=== PATIENT | female | born 1950 | race Two or more races ===

== ENCOUNTER 2019-03-24 15:04 | Emergency (ER) | payer MEDICAID, OTHER, SELFPAY ==
[~2019-03-24] VITALS: Ht 144.8 cm; Wt 78.0 kg
[~2019-03-24 15:04] MED LIST: ACET325T9 PO; DOCU-109 PO; ERTA1VIA IJ; FENO200C PO; Hydrocodone/Acetaminophen PO; INSU100I17 SQ; INSU100I18 SQ; LOSA-73 PO; LOSA25TA54 PO; METF850T8 PO
[2019-03-24 15:26] VITALS: BP 227/87
--- NOTE | 2019-03-24 16:03 | PHYS DOC ---
"Past Medical History Past Medical History: Diabetes-Type II, High Cholesterol, Hypertension Past Surgical History: Cholecystectomy, Tubal ligation, Other Additional Past Surgical Histo: CATARACT Alcohol Use: None Drug Use: None Adult General Chief Complaint Chief Complaint: BREAST PROBLEM [facility] HPI Patient is a 68 year old female presents to the ED complaining of right breast discharge 2 months ago. Patient states she's had intermittent white discharge from her right breast. States she feels like there might be a mass in her right breast. Patient states that she has not had a mammogram for approximately 7 or 8 years. States everything has been normal prior to that. Denies fever, any pain to the breast, skin changes, erythema, warmth, weight loss, night sweats, chest pain, shortness of breath, weakness, dizziness or fatigue. Review of Systems Review of Systems Constitutional: Denies fever or chills [] Eyes: Denies change in visual acuity, redness, or eye pain [] HENT: Denies nasal congestion or sore throat [] Respiratory: Denies cough or shortness of breath [] Cardiovascular: No additional information not addressed in HPI [] GI: Denies abdominal pain, nausea, vomiting, bloody stools or diarrhea [] : Denies dysuria or hematuria [] Musculoskeletal: Denies back pain or joint pain [] Integument: Denies rash or skin lesions [] Neurologic: Denies headache, focal weakness or sensory changes [] All other systems were reviewed and found to be within normal limits, except as documented in this note. Allergies Allergies Allergies Coded Allergies Type Severity Reaction Last Updated Verified Penicillins Allergy Intermediate hives 08/09/14 No Physical Exam Physical Exam Constitutional: Well developed, well nourished, no acute distress, non-toxic appearance. [] HENT: Normocephalic, atraumatic Eyes: PERRLA, EOMI, conjunctiva normal, no discharge. [] Neck: Normal range of motion, no tenderness, supple, no stridor. [] Cardiovascular:Heart rate regular rhythm, no murmur [] Lungs & Thorax: Bilateral breath sounds clear to auscultation [] Abdomen: Bowel sounds normal, soft, no tenderness, no masses, no pulsatile masses. [] Skin: Warm, dry, no erythema, no rash. mild breast tenderness at 12 O'Clock. No overlying skin changes or warmth. No appreciable nipple discharge. [] Back: No tenderness, no CVA tenderness. [] Extremities: No tenderness, no cyanosis, no clubbing, ROM intact, no edema. [] Neurologic: Alert and oriented X 3, normal motor function, normal sensory function, no focal deficits noted. [] Psychologic: Affect normal, judgement normal, mood normal. [] Current Patient Data Vital Signs Vital Signs Date Time Temp Pulse Resp B/P (MAP) Pulse Ox O2 Delivery O2 Flow Rate FiO2 03/24/19 15:26 98.1 90 14 227/87 (133) 98 Room Air 98.1 EKG EKG [] Radiology/Procedures Radiology/Procedures [] Course & Med Decision Making Course & Med Decision Making Pertinent Labs and Imaging studies reviewed. (See chart for details) []Patient has no appreciable discharge or overlying skin changes. No discernible mass. Discussed follow-up with breast Center. Provided contact information/education for [facility] as well as . Discussed reasons to return to the ED. Patient understands and agrees with plan. Print Shop Stenographer used. Family at bedside. Dragon Disclaimer Dragon Disclaimer This electronic medical record was generated, in whole or in part, using a voice recognition dictation system. Departure Departure Impression: Primary Impression: Discharge from breast Disposition: 01 HOME, SELF-CARE Condition: STABLE Referrals: NON,STAFF (PCP) AIDAN SANCHEZ MD Patient Instructions: Breast Biopsy Additional Instructions: [facility] [address] [place] [address] [facility] [address] [address] | [phone] SHEBA PIPER March 24, 2019 16:03"
== END 2019-03-24 16:46 | disposition home or self-care (01) ==
LOC: ER 15:04
DX: N64.52 Nipple discharge (principal); E11.9 Type 2 diabetes mellitus without complications; E78.00 Pure hypercholesterolemia, unspecified; I10 Essential (primary) hypertension; Z90.49 Acquired absence of other specified parts of digestive tract; Z98.51 Tubal ligation status; Z88.0 Allergy status to penicillin
CPT/HCPCS: 99281